=== PATIENT | female | born 1985 | race Caucasian/White ===

== ENCOUNTER 2018-06-13 09:43 | Emergency (ER) | payer OTHER ==
[~2018-06-13] VITALS: Ht 175.3 cm; Wt 103.0 kg
[~2018-06-13 09:43] MED LIST: HUMALOG100 UNIT/M SC; LIPITOR10 M1 PO; NAPROSYN500 MG PO; ZESTRIL5 M1 PO
[2018-06-13] MEDS ORDERED: LORTAB 1010 MG PO ×2 (11:10→11:15)
[2018-06-13] MEDS ORDERED: BACTRIM DS1 TAB PO (11:10)
[2018-06-13] MEDS ORDERED: CEPHALEXIN500 M1 PO (11:10)
[2018-06-13 11:25] VITALS: BP 115/90
== END 2018-06-13 11:25 | disposition home or self-care (01) ==
LOC: ED 09:43
DX: L05.01 Pilonidal cyst with abscess (principal); E11.9 Type 2 diabetes mellitus without complications; B95.7 Other staphylococcus as the cause of diseases classified elsewhere

== ENCOUNTER 2018-06-15 19:06 | Emergency (ER) | payer OTHER ==
[~2018-06-15] VITALS: Ht 175.3 cm; Wt 105.6 kg
[~2018-06-15 19:06] MED LIST changes: +BACTRIM DS1 TAB PO; +CEPHALEXIN500 M1 PO; +LORTAB 1010 MG PO
[2018-06-15 20:05] VITALS: BP 135/84
== END 2018-06-15 20:05 | disposition home or self-care (01) ==
LOC: ED 19:06
DX: Z48.01 Encounter for change or removal of surgical wound dressing (principal)